=== PATIENT | female | born 1945 | race Caucasian/White ===

== ENCOUNTER → 2017-02-19 | Outpatient (CLI) | payer MEDICARE ==
[~2017-02-19] MED LIST: DEPAKOTE ER PO; ESKALITH-CR450 MG PO; GLIPIZIDE2.5 MG/BOT PO; GLUCOVANCE 2.5/1 TA1 PO; GLYBURIDE2.5 MG PO; K-DUR20 ME1 PO; LASIX20 MG PO; LISINOPRIL10 MG PO; LISINOPRIL5 MG PO; OLANZAPINE7.5 MG PO; PRAVACHOL80 MG PO; PRAVASTATIN SOD40 MG PO; RISPERIDONE4 MG PO
--- NOTE | ~2017-02-19 | MY6 ---
[facility] A Service of [facility] & [facility] RADIOLOGY TEXT RESULTS PATIENT: EB DAWKINS LOCATION: [facility] : 41 UNIT #: [id number] AGE: [address]: Thai Sandy MD SEX: F ORDER DR: [id number] [facility]. [place], [place] [address] [id number] O MR#: [id number] Acc #: [id number] NAME: EB DAWKINS : 1945 SEX: F STUDY DATE/TIME: 02/19/2017 11:10 UNIT: [facility] ROOM: STUDY DESCRIPTION: MY Mammogram Dx Dig Monster Attending Physician: Thai Sandy M.D. Ordering Physician: Thai Sandy M.D. Primary Care Physician: Jaime Cash M.D. MEDICAL IMAGING REPORT This report is preliminary unless electronic signature is present EXAM Bilateral digital diagnostic mammogram with CAD 02/19/2017 INDICATION 71-year-old female with a history of right-sided breast cancer status post radiation therapy/chemotherapy. History of right breast surgery in 2014. Positive family history (degree relative not indicated). No current problems. TECHNIQUE CC, MLO and true lateral views of the breast were obtained and reviewed with an FDA-approved CAD device. COMPARISONS 08/08/2016, 01/24/2016, 05/06/2015, 01/19/2015. FINDINGS Lumpectomy changes with architectural distortion in the upper inner right breast unchanged. Surgical clips adjacent to the lumpectomy bed and benign-appearing calcifications associated with the lumpectomy bed are stable. No new suspicious clustered microcalcifications. No new suspicious nodule or mass in either breast. There are other benign-appearing calcifications bilaterally. Faint nodular density in the lower inner hemisphere left breast unchanged dating back to at least 2011. No new adenopathy. Absent new or worsening symptoms in either breast, a repeat diagnostic mammogram in 1 year is recommended. Findings and recommendations were discussed with the patient. She voiced understanding and agreement. IMPRESSION 1. Lumpectomy sequela in the right breast with associated architectural distortion. Benign calcifications. A followup STS. [facility] A Service of [facility] & [facility] RADIOLOGY TEXT RESULTS PATIENT: EB DAWKINS LOCATION: [facility] : 41 UNIT #: [id number] AGE: [address]: Thai Sandy MD SEX: F ORDER DR: mammogram in 1 year is recommended. Patient's over the age of 40 are entered into a reminder system with target due date for the next mammogram. BIRADS: 2 Benign findings Dictated by... Miguel Powers M.D. THIS IS AN ELECTRONICALLY VERIFIED REPORT Miguel Powers M.D. at 02/19/2017 4:59 PM Yoandy TD: 02/19/2017 12:37 JOB #: [id number] MEDICAL IMAGING REPORT Page 1 of 1 COPY
== END | disposition home or self-care (01) ==
LOC: CMAM 09:56
DX: Z08 Encounter for follow-up examination after completed treatment for malignant neoplasm (principal); R92.1 Mammographic calcification found on diagnostic imaging of breast; Z98.890 Other specified postprocedural states; Z92.3 Personal history of irradiation; Z92.21 Personal history of antineoplastic chemotherapy; Z85.3 Personal history of malignant neoplasm of breast
CPT/HCPCS: G0204